=== PATIENT | male | born 1980 | race Caucasian/White ===

== ENCOUNTER 2022-03-09 03:49 | Emergency (ER) | payer MEDICAID ==
[~2022-03-09] VITALS: Ht 170.2 cm; Wt 55.8 kg
[2022-03-09 04:01] VITALS: BP 114/74
== END 2022-03-09 05:57 | disposition left against medical advice (07) ==
LOC: ER 03:49
DX: Z53.21 Procedure and treatment not carried out due to patient leaving prior to being seen by health care provider (principal)